=== PATIENT | female | born 1965 | race Caucasian/White ===

== ENCOUNTER 2019-04-11 22:34 | Emergency (ER) | payer SELFPAY ==
[~2019-04-11] VITALS: Ht 154.9 cm; Wt 82.0 kg
[2019-04-11 22:37] VITALS: Ht 154.9 cm; Wt 82.0 kg
--- NOTE | 2019-04-11 22:45 | ERD ---
ER Documentation Chief Complaint Chief Complaint ABD PAIN HPI The patient is a 53-year-old female, resenting to the ER because of abdominal cramps, general body pain, decreased appetite and diarrhea for 1 day after eating hot dog. Her is having similar symptoms, she denies fever, chills, neck pain, chest pain, dyspnea, dysuria. She does not smoke nor drink Past medical history: SLE, anxiety, depression, hypertension, hypothyroidism Past surgical history: None ROS All systems reviewed and are negative except as per history of present illness. Medications Home Meds Active Scripts Ibuprofen* (Motrin*) 600 Mg Tab, 600 MG PO Q6H PRN for PAIN AND OR ELEVATED TEMP, #20 TAB Prov:RIYA MAYER MD 04/12/19 Loperamide Hcl* (Imodium*) 2 Mg Capsule, 2 MG PO .AFTER EA LOOSE BM PRN for DIARRHEA, #10 TAB Prov:RIYA MAYER MD 04/12/19 Allergies Allergies: Coded Allergies: No Known Allergy (Unverified , 04/12/19) Physical Exam Vitals Vital Signs Date Temp Pulse Resp B/P (MAP) Pulse Ox O2 O2 Flow FiO2 Time Delivery Rate 04/12/19 89 18 127/99 00:08 (108) 04/11/19 100.1 114 18 142/90 99 22:37 (107) Physical Exam Const: No acute distress. Head: Atraumatic. Eyes: Normal Conjunctiva. ENT: Normal External Ears, Nose and Mouth. Neck: Full range of motion. No meningismus. Resp: Clear to auscultation bilaterally. Cardio: Regular rate and rhythm. Abd: Soft, non distended, normal bowel sounds, non tender. Skin: No petechiae or rashes. Back: No midline or flank tenderness. Ext: No cyanosis, or edema. Neur: Awake and alert. No focal deficit Psych: Normal Mood and Affect. Result Diagram: 04/11/19 2305 04/11/19 2306 Results 24 hrs Laboratory Tests Test 04/11/19 23:05 04/11/19 23:06 04/11/19 23:25 White Blood Count 9.6 10^3/ul Red Blood Count 5.50 10^6/ul Hemoglobin 15.7 g/dl Hematocrit 47.5 % Mean Corpuscular Volume 86.4 fl Mean Corpuscular Hemoglobin 28.5 pg Mean Corpuscular 33.1 g/dl Hemoglobin Concent Red Cell Distribution Width 14.2 % Platelet Count 313 10^3/UL Mean Platelet Volume 10.0 fl Immature Granulocytes % 0.300 % Neutrophils % 74.1 % Lymphocytes % 17.1 % Monocytes % 6.2 % Eosinophils % 1.9 % Basophils % 0.4 % Nucleated Red Blood Cells % 0.0 /100WBC Immature Granulocytes # 0.030 10^3/ul Neutrophils # 7.1 10^3/ul Lymphocytes # 1.7 10^3/ul Monocytes # 0.6 10^3/ul Eosinophils # 0.2 10^3/ul Basophils # 0.0 10^3/ul Nucleated Red Blood Cells # 0.0 10^3/ul Sodium Level 140 mmol/L Potassium Level 3.5 mmol/L Chloride Level 106 mmol/L Carbon Dioxide Level 23 mmol/L Anion Gap 11 Blood Urea Nitrogen 8 mg/dl Creatinine 0.68 mg/dl Est Glomerular Filtrat Rate mL/min > 60 mL/min Glucose Level 125 mg/dl Calcium Level 9.4 mg/dl Total Bilirubin 1.2 mg/dl Direct Bilirubin 0.00 mg/dl Indirect Bilirubin 1.2 mg/dl Aspartate Amino Transf (AST/SGOT) 32 IU/L Alanine 28 IU/L Aminotransferase (ALT/SGPT) Alkaline Phosphatase 116 IU/L Total Protein 7.9 g/dl Albumin 4.3 g/dl Globulin 3.60 g/dl Albumin/Globulin Ratio 1.19 Lipase 52 U/L Bedside Urine pH (LAB) 6.5 Bedside Urine Protein (LAB) Negative Bedside Urine Glucose (UA) Negative Bedside Urine Ketones (LAB) Negative Bedside Urine Blood 1+ Bedside Urine Nitrite (LAB) Negative Bedside Urine Leukocyte Esterase Negative (L Current Medications Medications Dose Sig/Carlie Start Time Status Last (Trade) Ordered Route PRN Stop Time Admin Dose Reason Admin Ketorolac 30 mg ONCE STAT 04/11/19 DC 04/11/19 Tromethamine IV 22:59 23:13 (Toradol) 04/11/19 23:00 Loperamide 4 mg ONCE ONCE 04/11/19 DC 04/11/19 HCl PO 23:00 23:13 (Imodium Cap) 04/11/19 23:01 Sodium 1,000 ml @ Q1H ONCE 04/12/19 04/12/19 Chloride 1,000 mls/hr IV 00:30 00:12 04/12/19 01:29 Procedures/MDM MEDICAL MAKING DECISION: The patient is a 53-year-old female, presenting with acute diarrhea, acute hematuria, acute abdominal pain of unclear etiology. She was treated with Toradol 30 mg IV for abdominal discomfort and Imodium 4 mg p.o. for diarrhea with good response. She is stable for outpatient follow-up The differential diagnoses considered include but are not limited to gastroenteritis, cholelithiasis, cholecystitis, choledocholithiasis, cholangitis, pancreatitis, hepatitis, gastritis, peptic ulcer disease, gastric ulcer, appendicitis, cystitis, diverticulitis, partial small bowel obstruction. Departure Diagnosis: Primary Impression: Diarrhea Additional Impression: Hematuria Condition: Good Comments She was discharged with Imodium and Motrin I discussed the findings with the patient. I advised the patient to follow-up with the primary physician in about 2-3 days, sooner if needed and return if any concern. Disclaimer: Inadvertent spelling and grammatical errors are likely due to EHR/dictation software use and do not reflect on the overall quality of patient care. Also, please note that the electronic time recorded on this note does not necessarily reflect the actual time of the patient encounter. RIYA MAYER MD Apr 11, 2019 22:45
[2019-04-11] MEDS ORDERED: KETOROLAC 30 MG INJ IV STA (22:59)
[2019-04-11] MEDS ORDERED: LOPERAMIDE 2 MG CAP PO ONE (23:00)
[2019-04-12] MEDS ORDERED: LOPE2CAP PO (00:27)
[2019-04-12] MEDS ORDERED: IBUP-1542 PO (00:28)
[2019-04-12] MEDS ORDERED: SOD CHLORIDE 0.9% 1,000 ML IV ONE (00:30)
[2019-04-12 01:14] VITALS: BP 143/98; PULSE 79; RESP 18
== END 2019-04-12 01:14 | disposition home or self-care (01) ==
LOC: E/R 22:34
DX: R19.7 Diarrhea, unspecified (principal); E03.9 Hypothyroidism, unspecified; I10 Essential (primary) hypertension; R31.9 Hematuria, unspecified
CPT/HCPCS: 36415; 80053; 81003; 83690; 85025; 96374; 99284; J1885; J7030